=== PATIENT | female | born 1955 | race African-American/Black ===

== ENCOUNTER 2022-04-18 11:56 | Emergency (ER) | payer MEDICARE ==
[2022-04-18 14:38] LABS: BASOPHIL 0.8 % (0-2); EOSINOPHIL 0.8 % (0-7); HCT 30.1 % (37.0-47.0); LYMPHOCYTE 23.7 % (15-48); MCH 24.9 pg (25.0-31.0); MCHC 29.9 g/dL (32.0-36.0); MCV 83.1 fL (78.0-100.0); MONOCYTE 13.6 % (0-12); MPV 9.2 fL (6.0-9.5); NEUTROPHIL 60.5 % (41-80); NRBC 0; PLT 228 K/uL (150-400); RBC 3.62 M/uL (4.20-5.40); RDW 16.7 % (11.5-14.0); WBC 5.1 K/uL (4.0-10.5)
[2022-04-18 14:54] LABS: INR 1.08 (0.9-1.2); PROTHROMBIN TIME 13.7 SECONDS (11.9-13.9); PTT 35.4 SECONDS (24.9-34.6)
[2022-04-18 15:10] LABS: ALBUMIN 3.5 g/dL (3.4-5.0); BILIRUBIN - TOTAL 0.4 mg/dL (0.2-1.0); BUN/CREAT RATIO (CALC) 17.5 RATIO; CREATININE 2.17 mg/dL (0.51-0.95); GLOBULIN (CALCULATION) 3.8 g/dL; MAGNESIUM 2.6 mg/dL (1.8-2.4); POTASSIUM 4.3 mmol/L (3.5-5.1); TOTAL PROTEIN 7.3 g/dL (6.4-8.2)
[2022-04-18 15:22] LABS: INFLUENZA A NAA NEGATIVE (NEGATIVE)
[2022-04-18 15:28] LABS: CORONAVIRUS 2019 SARS-COV-2 POSITIVE (NEGATIVE)
[2022-04-18] MEDS ORDERED: PAXLOVID CO-PA1 EAC1 PO (17:00)
[2022-04-18] MEDS ORDERED: VENTOLIN HFA18 GM INH (17:00)
[2022-04-18] MEDS ORDERED: MUCINEX 600MG600 MG PO (17:00)
== END 2022-04-18 17:19 | disposition home or self-care (01) ==
LOC: FER 11:56
PROVIDERS: Emergency Medicine
DX: U07.1 COVID-19 (principal); E10.9 Type 1 diabetes mellitus without complications; I10 Essential (primary) hypertension; Z79.82 Long term (current) use of aspirin; Z79.899 Other long term (current) drug therapy
CPT/HCPCS: 36415; 71250; 80053; 83605; 83735; 83880; 84145; 84443; 84484; 85025; 85610; 85730; 87040; 93005; U0002